=== PATIENT | male | born 1950 | race Caucasian/White ===

== ENCOUNTER 2016-08-29 10:46 | Emergency (ER) | payer MEDICARE, BC ==
--- NOTE | 2016-08-29 11:03 | Emergency Department Record ---
History of Present Illness - General Chief Complaint: Difficulty Breathing Stated Complaint: EDUARD Time Seen by Provider: 08/29/16 10:57 Source: Patient Mode of Arrival: EMS Limitations: Other (intoxicated) - History of Present Illness Initial Comments: 66 yo male presents to ED with a CC of "pain all over" this morning. Patient is unable to localize his pain symptoms on examination. Patient underwent paracentesis yesterday, had eight liters of fluid removed. Patient is currently being treated for cirrhosis related to heavy alcohol use. Patient reports that he has been using marijuana and alcohol for his pain at home. Onset/Timin -: Days(s) Severity: Moderate Severity scale (1-10): 10 Quality: Aching Improves With: Nothing Worsens With: Nothing - Related Data Home Medications Medication Instructions Recorded Confirmed Last Taken Acamprosate Calcium 333 mg PO BID tab.dr 08/26/15 08/29/16 1 Day Ago Fish Oil/Dha/Epa [Fish Oil 1,200 1 each PO BID cap 08/26/15 08/29/16 1 Day Ago Mg Fish Oil] Folic Acid 1 mg PO QD tab 08/26/15 08/29/16 1 Day Ago Furosemide 40 mg PO QD tab 08/26/15 08/29/16 1 Day Ago Levothyroxine Sodium 100 mcg PO QD tab 08/26/15 08/29/16 1 Day Ago Spironolactone 50 mg PO QD tab 08/26/15 08/29/16 1 Day Ago Vit B1 Mn/B2/B3/B5/B6/B12/C/FA [B 1 each PO DAILY tab 08/26/15 08/29/16 1 Day Ago Complex With Vitamin C Tab] Allergies Allergy/AdvReac Type Severity Reaction Status Date / Time No Known Drug Allergies Allergy Verified 08/29/16 10:57 Travel Screening - Travel/Exposure Within Last 30 Days Have you traveled within the last 30 days?: No - Travel/Exposure Within Last Year Have you traveled outside the [place] in the last year?: No - Additonal Travel Details Have you been exposed to anyone with a communicable illness?: No - Travel Symptoms Symptom Screening: None Review of Systems ROS unobtainable: Other (due to alcohol intoxication) Past Medical History - SOCIAL HISTORY Smoking Status: Current every day smoker Alcohol Use: None Drug Use: Heavy Drug Use Detail:: Marijuana - RESPIRATORY Hx Respiratory Disorders: Yes Hx Bronchitis: Yes Hx COPD: Yes - CARDIOVASCULAR Hx Cardio Disorders: No - NEURO Hx Neuro Disorders: Yes Hx Weakness: Yes (legs-> "bad fall 11/2014 PT-> uses cane now) Comment:: RLS - GI Hx GI Disorders: Yes Hx Hepatitis/Jaundice: Yes ("per PCP notes") Hx Nausea/Vomiting: Yes ("per PCP notes") Hx Cirrhosis: Yes ("per PCP notes") Comment:: pt denies liver disease/cirrhosis - Hx Genitourinary Disorders: No - ENDOCRINE Hx Endocrine Disorders: Yes Hx Thyroid Disease: Yes - MUSCULOSKELETAL Hx Musculoskeletal Disorders: Yes Hx Back Injury: Yes (pt. states had a fall 11/2014 in hospital until 02/2015 for therapy) - PSYCH Hx Psych Problems: No - HEMATOLOGY/ONCOLOGY Hx Hematology/Oncology Disorders: Yes Comment:: denies anemia/takes Ferrous Sulfate Family Medical History Any Significant Family History?: Yes Hx Cancer: Father Physical Exam - General General Appearance: Alert, Other (patient exhibits slurred speech on examination , smells of alcohol) Limitations: Other - Head Head exam: Atraumatic, Normocephalic, Normal inspection Head exam detail: negative: Abrasion, Contusion, Fuller's sign, General tenderness, Hematoma, Laceration - Eye Eye exam: Normal appearance. negative: Conjunctival injection, Periorbital swelling, Periorbital tenderness, Scleral icterus - ENT Ear exam: negative: Auricular hematoma, Auricular trauma Nasal Exam: negative: Active bleeding, Discharge, Dried blood, Foreign body Mouth exam: negative: Drooling, Laceration, Muffled voice, Tongue elevation - Neck Neck exam: Normal inspection. negative: Meningismus, Tenderness - Respiratory Respiratory exam: Normal lung sounds bilaterally. negative: Rales, Respiratory distress, Rhonchi, Stridor - Cardiovascular Cardiovascular Exam: Regular rate, Normal rhythm, Normal heart sounds - GI/Abdominal GI/Abdominal exam: Soft, Other (mild fluid wave present). negative: Pulsatile mass, Rebound, Rigid, Tenderness - Rectal Rectal exam: Deferred - exam: Deferred - Back Back exam: Denies: CVA tenderness (R), CVA tenderness (L) - Neurological Neurological exam: Alert, Other (intoxicated) - Psychiatric Psychiatric exam: Normal affect, Normal mood - Skin Skin exam: Normal color. negative: Abrasion Type of lesion: negative: abrasion Course Vital Signs 08/29/16 10:50 Temperature 97.7 F Pulse Rate 88 Respiratory 18 Rate Blood Pressure 120/82 Pulse Ox 96 - Reevaluation(s) Reevaluation #1: 08/29/16 11:30 EKG: NSR 82 Normal axis, normal intervals No acute ST-T wave changes present Reevaluation #2: 08/29/16 11:38 Portable Chest x-ray: Nothing acute. Reevaluation #3: 08/29/16 12:24 Labs reviewed, alcohol level is 0.465, labs are otherwise grossly unremarkable for an acute process. Reevaluation #4: 08/29/16 12:53 Patient reassessed, sleeping currently. Reevaluation #5: 08/29/16 13:37 Patient and family members were updated on patient's results, patient is asking for "something for pain". I informed the patient that we are limited as to what we can use due to his liver failure and elevated alcohol level. He is easily distracted from his pain symptoms however, and we will continue to monitor. Medical Decision Making - Lab Data Result diagrams: 08/29/16 11:28 08/29/16 11:28 Disposition Clinical Impression: Alcohol intoxication Qualifiers: Complication of substance-induced condition: with unspecified complication Qualified Code(s): F10.129 - Alcohol abuse with intoxication, unspecified Cirrhosis Qualifiers: Hepatic cirrhosis type: alcoholic cirrhosis Ascites presence: with ascites Qualified Code(s): K70.31 - Alcoholic cirrhosis of liver with ascites Condition: (2) Stable Forms: Patient Portal Access
[2016-08-29 11:34] LABS: EOS % 2.1 % (0-6); GRAN % 71.9 % (47-80); HEMATOCRIT 36.3 % (42.0-52.0); HEMOGLOBIN 12.5 gm/dl (14.0-18.0); LYMPH % 17.1 % (16-45); MEAN CELL VOLUME 91.7 fl (81-97); MEAN CORPUSCULAR HGB CONC 34.4 g/dl (32-36); MEAN PLATELET VOLUME 10.3 fl (7.4-10.4); MONO % 7.9 % (0-9); PLATELET COUNT 92 K/uL (130-400); RED BLOOD COUNT 3.96 M/uL (4.40-5.70); RED CELL DISTRIBUTION WIDTH 18.2 % (11.5-14.5); WHITE BLOOD COUNT W/O DIFF 6.7 K/uL (4.2-12.2)
[2016-08-29 11:35] LABS: MEAN CORPUSCULAR HEMOGLOBIN 31.5 pg (27-33)
[2016-08-29 11:44] LABS: INR 1.06
[2016-08-29 11:49] LABS: ALBUMIN 3.7 gm/dL (3.5-5.0); ALKALINE PHOSPHATASE 187 U/L (38-126); ALT/SGPT 40 U/L (21-72); ANION GAP 12.7 (7-16); AST/SGOT 106 U/L (17-59); BILIRUBIN,TOTAL 1.33 mg/dL (0.2-1.3); BLOOD UREA NITROGEN 10 mg/dL (9-20); CARBON DIOXIDE 26.3 mmol/L (22-30); CREATININE 0.7 mg/dL (0.66-1.25); EST GLOMERULAR FILTRATION RATE > 60 ml/min; GLUCOSE,RANDOM 118 mg/dL (70-110); LIPASE 131 U/L (23-300); TOTAL PROTEIN 7.5 gm/dL (6.3-8.2)
[2016-08-29 11:57] LABS: ALCOHOL 0.465 g/dL (0-0.010)
[2016-08-29] MEDS ORDERED: KETOROLAC 30 MG/ML VIAL IVP ONE (13:56)
--- NOTE | 2016-08-29 16:01 | Emergency Department Record ---
History of Present Illness - General Chief Complaint: Difficulty Breathing Stated Complaint: EDUARD Time Seen by Provider: 08/29/16 10:57 Source: Patient Mode of Arrival: EMS Limitations: Other - History of Present Illness Onset/Timin -: Days(s) Severity: Moderate Severity scale (1-10): 10 Quality: Aching Improves With: Nothing Worsens With: Nothing - Related Data Home Medications Medication Instructions Recorded Confirmed Last Taken Acamprosate Calcium 333 mg PO BID tab. 08/26/15 08/29/16 1 Day Ago Fish Oil/Dha/Epa [Fish Oil 1,200 1 each PO BID cap 08/26/15 08/29/16 1 Day Ago Mg Fish Oil] Folic Acid 1 mg PO QD tab 08/26/15 08/29/16 1 Day Ago Furosemide 40 mg PO QD tab 08/26/15 08/29/16 1 Day Ago Levothyroxine Sodium 100 mcg PO QD tab 08/26/15 08/29/16 1 Day Ago Spironolactone 50 mg PO QD tab 08/26/15 08/29/16 1 Day Ago Vit B1 Mn/B2/B3/B5/B6/B12/C/FA [B 1 each PO DAILY tab 08/26/15 08/29/16 1 Day Ago Complex With Vitamin C Tab] Allergies Allergy/AdvReac Type Severity Reaction Status Date / Time No Known Drug Allergies Allergy Verified 08/29/16 10:57 Travel Screening - Travel/Exposure Within Last 30 Days Have you traveled within the last 30 days?: No - Travel/Exposure Within Last Year Have you traveled outside the [place] in the last year?: No - Additonal Travel Details Have you been exposed to anyone with a communicable illness?: No - Travel Symptoms Symptom Screening: None Past Medical History - SOCIAL HISTORY Smoking Status: Current every day smoker Alcohol Use: None Drug Use: Heavy Drug Use Detail:: Marijuana - RESPIRATORY Hx Respiratory Disorders: Yes Hx Bronchitis: Yes Hx COPD: Yes - CARDIOVASCULAR Hx Cardio Disorders: No - NEURO Hx Neuro Disorders: Yes Hx Weakness: Yes (legs-> "bad fall 11/2014 PT-> uses cane now) Comment:: RLS - GI Hx GI Disorders: Yes Hx Hepatitis/Jaundice: Yes ("per PCP notes") Hx Nausea/Vomiting: Yes ("per PCP notes") Hx Cirrhosis: Yes ("per PCP notes") Comment:: pt denies liver disease/cirrhosis - Hx Genitourinary Disorders: No - ENDOCRINE Hx Endocrine Disorders: Yes Hx Thyroid Disease: Yes - MUSCULOSKELETAL Hx Musculoskeletal Disorders: Yes Hx Back Injury: Yes (pt. states had a fall 11/2014 in hospital until 02/2015 for therapy) - PSYCH Hx Psych Problems: No - HEMATOLOGY/ONCOLOGY Hx Hematology/Oncology Disorders: Yes Comment:: denies anemia/takes Ferrous Sulfate Family Medical History Any Significant Family History?: Yes Hx Cancer: Father Physical Exam - General Limitations: Other Course Vital Signs 08/29/16 08/29/16 08/29/16 10:50 12:07 13:57 Temperature 97.7 F Pulse Rate 88 Pulse Rate [ 79 88 Pulse Ox Probe] Respiratory 18 18 18 Rate Blood Pressure 120/82 Blood Pressure 99/60 [Left] Pulse Ox 96 97 98 08/29/16 15:08 Temperature 98.9 F Pulse Rate Pulse Rate [ 86 Pulse Ox Probe] Respiratory 18 Rate Blood Pressure Blood Pressure 118/78 [Left] Pulse Ox 97 Medical Decision Making - Lab Data Result diagrams: 08/29/16 11:28 08/29/16 11:28 Lab Results 08/29/16 08/29/16 08/29/16 Range/Units 11:28 11:28 11:28 WBC 6.7 (4.2-12.2) K/uL RBC 3.96 L (4.40-5.70) M/uL Hgb 12.5 L (14.0-18.0) gm/dl Hct 36.3 L (42.0-52.0) % MCV 91.7 (81-97) fl MCH 31.5 (27-33) pg MCHC 34.4 (32-36) g/dl RDW 18.2 H (11.5-14.5) % Plt Count 92 L (130-400) K/uL MPV 10.3 (7.4-10.4) fl Gran % 71.9 (47-80) % Lymphocytes % 17.1 (16-45) % Monocytes % 7.9 (0-9) % Eosinophils % 2.1 (0-6) % Basophils % 1.0 (0-6) % PT 12.0 (9.5-12.1) SECONDS INR 1.06 Sodium 143 (136-145) mmol/L Potassium 4.0 (3.5-5.1) mmol/L Chloride 104 (98-107) mmol/L Carbon Dioxide 26.3 (22-30) mmol/L Anion Gap 12.7 (7-16) BUN 10 (9-20) mg/dL Creatinine 0.7 (0.66-1.25) mg/dL Estimated GFR > 60 ml/min Random Glucose 118 H (70-110) mg/dL Calcium 7.9 L (8.5-10.1) mg/dL Total Bilirubin 1.33 H (0.2-1.3) mg/dL AST 106 H (17-59) U/L ALT 40 (21-72) U/L Alkaline Phosphatase 187 H (38-126) U/L Total Protein 7.5 (6.3-8.2) gm/dL Albumin 3.7 (3.5-5.0) gm/dL Globulin 3.8 (1.4-4.8) gm/dL Albumin/Globulin Ratio 1.0 L (1.1-1.8) Lipase 131 (23-300) U/L Ethyl Alcohol 0.465 H* (0-0.010) g/dL Disposition Clinical Impression: Alcohol intoxication Qualifiers: Complication of substance-induced condition: with unspecified complication Qualified Code(s): F10.129 - Alcohol abuse with intoxication, unspecified Cirrhosis Qualifiers: Hepatic cirrhosis type: alcoholic cirrhosis Ascites presence: with ascites Qualified Code(s): K70.31 - Alcoholic cirrhosis of liver with ascites Disposition: Home, Self-Care Condition: (2) Stable Instructions: Alcohol Intoxication (ED) Additional Instructions: Return to ED if your symptoms worsen or if you have any concerns. Follow-up with Dr. Sky in 3-5 days as directed. Forms: Patient Portal Access Time of Disposition: 16:01
== END 2016-08-29 16:08 | disposition home or self-care (01) ==
LOC: ER 10:46
DX: K70.31 Alcoholic cirrhosis of liver with ascites (principal); F10.129 Alcohol abuse with intoxication, unspecified; Y90.5 Blood alcohol level of 100-119 mg/100 ml; J44.9 Chronic obstructive pulmonary disease, unspecified; F17.200 Nicotine dependence, unspecified, uncomplicated
CPT/HCPCS: 71010; 80053; 80320; 83690; 85025; 85610; 93005; 93010; 96374; 99284; J1885

== ENCOUNTER 2016-10-19 04:20 | Emergency (ER) | payer MEDICARE, BC ==
--- NOTE | 2016-10-19 04:56 | Emergency Department Record ---
History of Present Illness - General Chief Complaint: Fall Injury Stated Complaint: FALL Time Seen by Provider: 10/19/16 04:45 Source: Patient, EMS Mode of Arrival: EMS Limitations: Altered mental status - History of Present Illness Initial Comments: pt fell injuring his l forearm and unknown what else. pt states he could have hit his head. 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 pts neighbor has POA and stated that they have a monitor watching him and they saw that he was on the floor and called EMS MD Complaint: Fall -: Unknown Fall From: Standing When Fall Occurred: Unsure Fall Witnessed: No Place Fall Occurred: Home Loss of Consciousness: Unsure Prolonged Down Time?: Unclear Symptoms Prior to Fall: None Location: Head Location - Extremities: Left: Forearm Severity: Moderate Severity scale (1-10): 10 Context: Alcohol use, Tripped/slipped Associated Symptoms: Denies - Sacul Coma Scale Eye Response: (4) Open spontaneously Motor Response: (6) Obeys commands Verbal Response: (5) Oriented Sacul Total: 15 - Related Data Home Medications Medication Instructions Recorded Confirmed Last Taken Acamprosate Calcium 333 mg PO BID tab. 08/26/15 10/19/16 1 Day Ago ~08/28/16 Fish Oil/Dha/Epa [Fish Oil 1,200 1 each PO BID cap 08/26/15 10/19/16 1 Day Ago Mg Fish Oil] ~08/28/16 Folic Acid 1 mg PO QD tab 08/26/15 10/19/16 1 Day Ago ~08/28/16 Furosemide 40 mg PO QD tab 08/26/15 10/19/16 1 Day Ago ~08/28/16 Levothyroxine Sodium 100 mcg PO QD tab 08/26/15 10/19/16 1 Day Ago ~08/28/16 Spironolactone 50 mg PO QD tab 08/26/15 10/19/16 1 Day Ago ~08/28/16 Vit B1 Mn/B2/B3/B5/B6/B12/C/FA [B 1 each PO DAILY tab 08/26/15 10/19/16 1 Day Ago Complex With Vitamin C Tab] ~08/28/16 Allergies Allergy/AdvReac Type Severity Reaction Status Date / Time No Known Drug Allergies Allergy Verified 10/19/16 04:22 Travel Screening - Travel/Exposure Within Last 30 Days Have you traveled within the last 30 days?: No - Travel Symptoms Symptom Screening: None Review of Systems Reviewed: No additional complaints except as noted below Constitutional: Reports: As per HPI. Denies: Chills, Fever, Malaise, Night sweats, Weakness, Weight change Eyes: Reports: As per HPI. Denies: Eye discharge, Eye pain, Photophobia, Vision change ENT: Reports: As per HPI. Denies: Congestion, Dental pain, Ear pain, Epistaxis , Hearing loss, Throat pain Respiratory: Reports: As per HPI. Denies: Cough, Dyspnea, Hemoptysis, Stridor, Wheezes Cardiovascular: Reports: As per HPI. Denies: Arrhythmia, Chest pain, Dyspnea on exertion, Edema, Murmurs, Orthopnea, Palpitations, Paroxysmal nocturnal dyspnea, Rheumatic Fever, Syncope Endocrine: Reports: As per HPI. Denies: Fatigue, Heat or cold intolerance, Polydipsia, Polyuria Gastrointestinal: Reports: As per HPI. Denies: Abdominal pain, Constipation, Diarrhea, Hematemesis, Hematochezia, Melena, Nausea, Vomiting Genitourinary: Reports: As per HPI. Denies: Dysuria, Frequency, Hematuria, Incontinence, Retention, Testicular pain, Testicular mass, Urgency Musculoskeletal: Reports: As per HPI. Denies: Arthralgia, Back pain, Gout, Joint swelling, Myalgia, Neck pain Skin: Reports: As per HPI. Denies: Bruising, Change in color, Change in hair/ nails, Lesions, Pruritus, Rash Neurological: Reports: As per HPI. Denies: Abnormal gait, Confusion, Headache, Numbness, Paresthesias, Seizure, Tingling, Tremors, Vertigo, Weakness Psychiatric: Reports: As per HPI. Denies: Anxiety, Auditory hallucinations, Depression, Homicidal thoughts, Suicidal thoughts, Visual hallucinations Hematological/Lymphatic: Reports: As per HPI. Denies: Anemia, Blood Clots, Easy bleeding, Easy bruising, Swollen glands Past Medical History - SOCIAL HISTORY Smoking Status: Current every day smoker Alcohol Use: Heavy - RESPIRATORY Hx Respiratory Disorders: Yes Hx Bronchitis: Yes Hx COPD: Yes - CARDIOVASCULAR Hx Cardio Disorders: No - NEURO Hx Neuro Disorders: Yes Hx Weakness: Yes (legs-> "bad fall 11/2014 PT-> uses cane now) Comment:: RLS - GI Hx GI Disorders: Yes Hx Hepatitis/Jaundice: Yes ("per PCP notes") Hx Nausea/Vomiting: Yes ("per PCP notes") Hx Cirrhosis: Yes ("per PCP notes") Comment:: pt denies liver disease/cirrhosis - Hx Genitourinary Disorders: No - ENDOCRINE Hx Endocrine Disorders: Yes Hx Thyroid Disease: Yes - MUSCULOSKELETAL Hx Musculoskeletal Disorders: Yes Hx Back Injury: Yes (pt. states had a fall 11/2014 in hospital until 02/2015 for therapy) - PSYCH Hx Psych Problems: No - HEMATOLOGY/ONCOLOGY Hx Hematology/Oncology Disorders: Yes Comment:: denies anemia/takes Ferrous Sulfate Family Medical History Any Significant Family History?: Yes Hx Cancer: Father Physical Exam - General General Appearance: Alert, Oriented x3, Cooperative, Mild distress - Head Head exam: Normal inspection - Eye Eye exam: Normal appearance, PERRL, EOMI, Nystagmus Pupils: Normal accommodation - ENT ENT exam: Normal exam, Mucous membranes moist, Normal external ear exam, Normal orophraynx Ear exam: Normal external inspection. negative: External canal tenderness Nasal Exam: Normal inspection. negative: Discharge, Sinus tenderness Mouth exam: Normal external inspection, Tongue normal Teeth exam: Normal inspection. negative: Dental caries Throat exam: Normal inspection. negative: Tonsillar erythema, Tonsillar exudate - Neck Neck exam: Normal inspection, Full ROM. negative: Tenderness - Respiratory Respiratory exam: Normal lung sounds bilaterally. negative: Respiratory distress - Cardiovascular Cardiovascular Exam: Regular rate, Normal rhythm, Normal heart sounds - GI/Abdominal GI/Abdominal exam: Soft, Normal bowel sounds, Distended (ascites). negative: Tenderness - Rectal Rectal exam: Deferred - exam: Deferred - Extremities Extremities exam: Normal inspection, Full ROM, Normal capillary refill, Tenderness Image of Full Body: 1 - abrasion w large hematoma and tenderness 2 - abrasions, ecchymosis - Back Back exam: Reports: Normal inspection, Full ROM. Denies: Muscle spasm, Rash noted, Tenderness - Neurological Neurological exam: Alert, CN II-XII intact, Normal gait, Oriented X3 - Psychiatric Psychiatric exam: Normal affect, Normal mood - Skin Skin exam: Dry, Intact, Normal color, Warm Course Vital Signs 10/19/16 04:23 Temperature 97.9 F Pulse Rate 90 Respiratory 18 Rate Blood Pressure 100/87 Pulse Ox 93 L Medical Decision Making - Lab Data Result diagrams: 10/19/16 05:00 10/19/16 05:00 Disposition Disposition: Discharge Clinical Impression: Alcoholic hepatitis with ascites Contusion, forearm Qualifiers: Encounter type: initial encounter Laterality: left Qualified Code(s): S50.12XA - Contusion of left forearm, initial encounter Disposition: Home, Self-Care Condition: (1) Good Instructions: Contusion in Adults (ED) Additional Instructions: follow up with family doctor. return sooner if worse Forms: Patient Portal Access
[2016-10-19 05:07] LABS: EOS % 4.8 % (0-6); GRAN % 60.7 % (47-80); HEMATOCRIT 36.3 % (42.0-52.0); MEAN CELL VOLUME 92.1 fl (81-97); MEAN CORPUSCULAR HGB CONC 33.1 g/dl (32-36); MEAN PLATELET VOLUME 10.5 fl (7.4-10.4); MONO % 9.5 % (0-9); PLATELET COUNT 89 K/uL (130-400); RED BLOOD COUNT 3.94 M/uL (4.40-5.70); RED CELL DISTRIBUTION WIDTH 17.2 % (11.5-14.5); WHITE BLOOD COUNT W/O DIFF 7.8 K/uL (4.2-12.2)
[2016-10-19 05:08] LABS: MEAN CORPUSCULAR HEMOGLOBIN 30.4 pg (27-33)
[2016-10-19 05:19] LABS: ALB/GLOB RATIO 0.8 (1.1-1.8); ALBUMIN 3.3 gm/dL (3.5-5.0); ALCOHOL 0.295 g/dL (0-0.010); ALKALINE PHOSPHATASE 191 U/L (38-126); ALT/SGPT 17 U/L (21-72); ANION GAP 10.9 (7-16); AST/SGOT 130 U/L (17-59); BILIRUBIN,TOTAL 1.28 mg/dL (0.2-1.3); BLOOD UREA NITROGEN 22 mg/dL (9-20); CARBON DIOXIDE 26.1 mmol/L (22-30); CREATININE 1.2 mg/dL (0.66-1.25); EST GLOMERULAR FILTRATION RATE > 60 ml/min; GLUCOSE,RANDOM 105 mg/dL (70-110); TOTAL PROTEIN 7.4 gm/dL (6.3-8.2)
[2016-10-19 05:20] LABS: INR 1.13; PARTIAL THROMBOPLASTIN TIME 32.1 SECONDS (24.5-39.1); PROTHROMBIN TIME (PATIENT) 12.8 SECONDS (9.5-12.1)
== END 2016-10-19 06:43 | disposition home or self-care (01) ==
LOC: ER 04:20
DX: S50.12XA Contusion of left forearm, initial encounter (principal); S50.312A Abrasion of left elbow, initial encounter; S50.311A Abrasion of right elbow, initial encounter; K70.11 Alcoholic hepatitis with ascites; F10.229 Alcohol dependence with intoxication, unspecified; Y90.8 Blood alcohol level of 240 mg/100 ml or more; J44.9 Chronic obstructive pulmonary disease, unspecified; W01.0XXA Fall on same level from slipping, tripping and stumbling without subsequent striking against object, initial encounter; Y92.009 Unspecified place in unspecified non-institutional (private) residence as the place of occurrence of the external cause; F17.210 Nicotine dependence, cigarettes, uncomplicated
CPT/HCPCS: 99284 ×2; 85025; 85730; 85610; 80053; 73090; 70450; G0480; 80320